=== PATIENT | male | born 1960 | race Caucasian/White ===

== ENCOUNTER 2017-01-13 08:18 | Day surgery (SDC) | payer BC ==
[2017-01-09 16:51] VITALS: BMI 28.0
[2017-01-13] MEDS ORDERED: PROPOFOL 20 ML ONE (08:39)
[2017-01-13 10:08] VITALS: TEMP 98.6
[2017-01-13 10:23] VITALS: BP 143/83; PULSE 76
--- NOTE | 2017-01-16 15:21 | PATH ---
Surgical Pathology Report Patient Name: GEMINI MARIA JR [facility]. Rec. #: [id number] /Age/Gender: 1960 (Age: 56) / M Account: [id number] Location: [facility] Taken: 01/13/2017 Received: 01/13/2017 Reported: 01/16/2017 Physicians: Elizabeth Huang M.D. Specimen(s) Received A: BX ASCENDING B: BX SIGMOID Clinical History History of polyps Final Diagnosis A. ASCENDING, BIOPSY: HYPERPLASTIC POLYP. B. SIGMOID, BIOPSY: SESSILE SERRATED POLYP. Electronically Signed Rosana Landry M.D. Gross Description A. Received in formalin, labeled "ascending" are 2 bates, irregular portions of soft tissue measuring 0.2 and 0.4 cm. in greatest dimension. The specimens are submitted in toto in one cassette. B. Received in formalin, labeled "sigmoid" are 2 bates, irregular portions of soft tissue averaging 0.2 cm. in greatest dimension. The specimens are submitted in toto in one cassette. 01/13/201701/13/2017
== END 2017-01-13 10:25 | disposition home or self-care (01) ==
LOC: FASU 08:18
PROVIDERS: ATTEND Internal Medicine
PROC: 0DBK8ZX Excision of Ascending Colon, Via Natural or Artificial Opening Endoscopic, Diagnostic (ICD-10-PCS; principal; 2017-01-13 09:25)
PROC: 0DBN8ZX Excision of Sigmoid Colon, Via Natural or Artificial Opening Endoscopic, Diagnostic (ICD-10-PCS; 2017-01-13 09:25)
DX: Z86.010 Personal history of colon polyps (principal); D12.5 Benign neoplasm of sigmoid colon; K63.5 Polyp of colon; K64.8 Other hemorrhoids
CPT/HCPCS: 88305-TC